=== PATIENT | male | born 1955 | race Caucasian/White ===

== ENCOUNTER 2017-06-06 07:09 | Day surgery (SDC) | payer BC ==
[2017-06-01 10:03] VITALS: BMI 23.2
[~2017-06-06 07:09] MED LIST: LACTATED RINGERS 1,000 ML IV SCH; LIDOCAINE 1% 20 ML VIAL (10MG/ML) FOR IV START INTRADERMA PRN; MOXIFLOXACIN HCL 0.5% DROPS 3 ML BTL OP ONE; TETRACAINE 0.5% OPHTH (PF) DROPS 4 ML BTL OP ONE; TIMOLOL 0.5% OPHTH SOLN (PF) 0.2 ML DROPERETTE OP ONE
[2017-06-06 07:26] VITALS: RESP 16
[2017-06-06 07:29] VITALS: TEMP 98.5
[2017-06-06] MEDS: PHENYLEPHRINE 2.5% OPHTH DRP 2ML OP NR ×3 (07:32→07:49)
[2017-06-06] MEDS: CYCLOPENTOLATE 1% OPHTH SOLN 2 ML BTL OP ONE ×3 (07:36→07:51)
[2017-06-06] MEDS ORDERED: fentaNYL (PF) 50 MCG/ML 2 ML AMP ONE (08:03)
[2017-06-06] MEDS ORDERED: MIDAZOLAM 2 MG/2 ML VIAL ONE (08:03)
[2017-06-06] MEDS ORDERED: EPINEPHrine (PF) 0.3 ML in BALANCED SALT IRRIG SOLN COMB2 500 ML IRRIGATION ONE (08:06)
[2017-06-06] MEDS ORDERED: LIDOCAINE 1% (PF) 10MG/ML VIAL MISCELLANE ONE ×2 (08:13)
[2017-06-06] MEDS ORDERED: HYALURONATE SODIUM INTRAOCULAR 1 EACH SYRINGE (12MG/ML) INTRAOCULA ONE ×2 (08:13)
[2017-06-06] MEDS ORDERED: BALANCED SALT IRRIG SOLN COMB2 15 ML IRRIG.SOLN INTRAOCULA ONE (08:13)
[2017-06-06] MEDS ORDERED: CHONDROITIN-SOD HYALURONATE 1 EACH SYRINGE (0.75 ML) INTRAOCULA ONE ×2 (08:35)
[2017-06-06] MEDS ORDERED: EPINEPHrine (PF) 1 MG/ML AMP MISCELLANE ONE (08:54)
--- NOTE | 2017-06-06 09:16 | P.OP ---
Date of Procedure: 06/06/17 Preoperative Diagnosis: NS & POAG & previous RD Postoperative Diagnosis: NS & CS & POAG & zonular dehisscence Procedure(s) Performed: ISTent imlpantation & IOL implantation & cataract removal Implants: LI61AO 17.50 & iStent [id number] Anesthesia: MAC Surgeon: Dwight Jean-Baptiste Estimated Blood Loss (ml): 0 Pathology: none sent Condition: stable Disposition: same day Indications for Procedure: blurry vision & glaucoma Operative Findings: loose lens system, leading to sulcus fixed lens implant. Description of Procedure:
[2017-06-06 09:49] VITALS: BP 126/67; PULSE 60
--- NOTE | 2017-06-07 11:38 | OP ---
DATE OF SURGERY: 06/06/17 PREOPERATIVE DIAGNOSES: 1. Nuclear sclerosis. 2. Cortical sclerosis. 3. Primary open angle glaucoma moderate stage. 4. Previous history of retinal detachment and vitrectomy with membrane peeling of the left eye. POSTOPERATIVE DIAGNOSES: 1. Nuclear sclerosis. 2. Cortical sclerosis. 3. Primary open angle glaucoma moderate stage. 4. Previous history of retinal detachment and vitrectomy with membrane peeling of the left eye. 5. Phacodonesis of the natural lens. SURGEON: DR. DEYVI HAYES. OPERATION: Clear cornea phacoemulsification of cataract and intraocular lens implant of the left eye with an eye stent implantation of the left eye. ANESTHESIA: Topical. ESTIMATED BLOOD LOSS: Zero. SPECIMEN TAKEN: None. NARRATIVE: After obtaining the appropriate consent, the patient was brought to the Operating Room where the patient was placed under cardiac monitoring and prepped and draped in the usual sterile manner. He was approached from his right temporal side and at the 5 oclock position, a 1.1 mm stab blade was used to create a paracentesis port. Through this opening, 1% Xylocaine MPF 50:50 mix with BSS was injected into the anterior chamber. This was followed by stabilization of the anterior chamber with Viscoat. A small amount of material was placed on the patients cornea as well. At the 3 oclock position , a 2.5 mm Keratome was used to create a self sealing corneal flap incision. ( ). The patients head was then turned 45 degrees away from the operative site and a ( ) prism was placed on the patients eye. Examination of the angle of the cornea and the iris was examined and the trabecular mesh work was identified. Using a ( ) eye stent model [id number], the stent was passed across the anterior chamber and into the nasal side of the trabecular meshwork. The implant was imbedded into Schlemms canal and required tapping with the viscoelastic cannula to ensure proper placement. The patient was then returned to the normal supine position. At this stage, a cystatome was introduced to begin a continuous tear capsulorrhexis which was completed with the Utrata forceps. Hydrodissection and hydrodelineation of the lens was accomplished with balanced salt solution. Phacoemulsification of the lens was performed utilizing phacochop was begun and it was identified at this point that there was moderate to severe laxity of the nasal ( ) in the patients eye. A 13 mm capsular tension ring was then placed into the capsular bag through the cortical cataract material in the patients eye. Careful continuation of phacoemulsification allowed removal of the cataract at 53.85 seconds at 15% power. During the course of the cataract removal, there was significant amount of myosis which was encountered and a 6.5 mm Malyugin ring was inserted at the beginning of phacoemulsification, however, due to significant changes in the depth of the anterior chamber, the Malyugin ring did not remain on the papillary sphincter and was removed prior to clean up of the remaining cortical material in the eye. Additional Xylocaine MPF was instilled into the anterior chamber as well as Xylocaine MPF 1:1000 50/50 mix with balance salt solution in an attempt to enhance the remaining dilation. Because of concerns with the stability of the remaining and intact capsular bag with capsular tension ring, it was decided to use the backup lens and place it within the siliary sulcus supported by the remaining capsule and intact zonules. A [employer] LI61AO 17.5 diopter posterior chamber lens was then inserted into the eye and rotated away from the area of perceived zonular dehiscence. Careful clean up of the remaining viscoelastic was accomplished with irrigation and aspiration. The eye was brought to normal intraocular pressure at the paracentesis port. For additional security, the temporal as well as paracentesis were coated with Resure to prevent early postoperative leakage from the eye and shifting of the anterior chamber contents. The patient then received two drops of Moxifloxacin as well as two drops of 0.5% Timolol. He was then lightly patched and shielded in the usual manner. The patient was returned to the recovery room in good condition. MARY
== END 2017-06-06 10:16 | disposition home or self-care (01) ==
LOC: OR 07:09
PROVIDERS: ATTEND Ophthalmology
DX: H25.12 Age-related nuclear cataract, left eye (principal); H25.012 Cortical age-related cataract, left eye; H40.1132 Primary open-angle glaucoma, bilateral, moderate stage; H27.8 Other specified disorders of lens; H47.233 Glaucomatous optic atrophy, bilateral; H35.9 Unspecified retinal disorder; H52.12 Myopia, left eye; H52.223 Regular astigmatism, bilateral; H52.4 Presbyopia; H35.719 Central serous chorioretinopathy, unspecified eye; G43.909 Migraine, unspecified, not intractable, without status migrainosus; F32.9 Major depressive disorder, single episode, unspecified; I10 Essential (primary) hypertension; F90.9 Attention-deficit hyperactivity disorder, unspecified type; F41.9 Anxiety disorder, unspecified; Z79.899 Other long term (current) drug therapy; Z88.8 Allergy status to other drugs, medicaments and biological substances; Z87.891 Personal history of nicotine dependence
CPT/HCPCS: 66183; 66982; L8610; V2632; V2788; C1783; J2250; J0171; J3010; J2001

== ENCOUNTER 2017-07-04 08:00 | Day surgery (SDC) | payer BC ==
[2017-06-27 12:00] VITALS: BMI 24.7
[~2017-07-04 08:00] MED LIST changes: +BUPIVACAINE (PF) 0.5% 4.5 ML, HYALURONIDASE, HUMAN RECOMB 150 UNIT, LIDOCAINE (PF) 90 MG IO ONE; -LIDOCAINE 1% 20 ML VIAL (10MG/ML) FOR IV START INTRADERMA PRN; -MOXIFLOXACIN HCL 0.5% DROPS 3 ML BTL OP ONE; -TETRACAINE 0.5% OPHTH (PF) DROPS 4 ML BTL OP ONE; -TIMOLOL 0.5% OPHTH SOLN (PF) 0.2 ML DROPERETTE OP ONE
[2017-07-04] MEDS: CYCLOPENTOLATE 1% OPHTH SOLN 2 ML BTL OP SCH ×3 (10:04→10:18)
[2017-07-04] MEDS: PHENYLEPHRINE 2.5% OPHTH DRP 2ML OP SCH ×3 (10:08→10:21)
[2017-07-04 10:13] VITALS: TEMP 97.9
[2017-07-04] MEDS ORDERED: LIDOCAINE 1% 20 ML VIAL (10MG/ML) FOR IV START INTRADERMA ONE (10:19)
[2017-07-04] MEDS ORDERED: fentaNYL (PF) 50 MCG/ML 2 ML AMP ONE (10:49)
[2017-07-04] MEDS ORDERED: PROPOFOL 10 MG/ML 20 ML VIAL IV ONE (10:49)
[2017-07-04] MEDS ORDERED: MIDAZOLAM 2 MG/2 ML VIAL ONE (10:49)
[2017-07-04] MEDS ORDERED: HYALURONATE SODIUM INTRAOCULAR 1 EACH SYRINGE (12MG/ML) INTRAOCULA ONE (10:51)
[2017-07-04] MEDS ORDERED: MOXIFLOXACIN HCL 0.5% DROPS 3 ML BTL LEFT EYE ONE (10:51)
[2017-07-04] MEDS ORDERED: BALANCED SALT IRRIG SOLN COMB2 15 ML IRRIG.SOLN INTRAOCULA ONE (10:51)
[2017-07-04] MEDS ORDERED: EPINEPHrine (PF) 0.5 ML in BALANCED SALT IRRIG SOLN COMB2 500 ML IRRIGATION ONE (10:54)
[2017-07-04] MEDS ORDERED: CHONDROITIN-SOD HYALURONATE 1 EACH SYRINGE (0.75 ML) INTRAOCULA ONE (10:57)
[2017-07-04] MEDS ORDERED: TIMOLOL 0.5% OPHTH SOLN (PF) 0.2 ML DROPERETTE LEFT EYE ONE (12:06)
--- NOTE | 2017-07-04 12:10 | P.OP ---
Date of Procedure: 07/04/17 Preoperative Diagnosis: aphakia OS Postoperative Diagnosis: same Procedure(s) Performed: primary implant OS sutured in place Implants: LI61AO 18.00 Anesthesia: MAC Surgeon: Dwight Jean-Baptiste Pathology: none sent Condition: stable Disposition: same day Indications for Procedure: No lens poor vision Operative Findings: No complications Description of Procedure:
[2017-07-04 12:31] VITALS: RESP 16
[2017-07-04 12:33] VITALS: BP 134/89; PULSE 54
--- NOTE | 2017-07-05 19:23 | OP ---
DATE OF SURGERY: 07/04/2017 PROCEDURE: Secondary implantation of a dislocated intraocular lens of the left eye. PREOPERATIVE DIAGNOSIS: Dislocated intraocular lens. POSTOPERATIVE DIAGNOSIS: Dislocation intraocular lens. SURGEON: Dr. Dwight Jean-Baptiste ANESTHESIA: Regional block using retrobulbar anesthesia. ESTIMATED BLOOD LOSS: Less than 5 mL SPECIMEN TAKEN: None. NARRATIVE: After obtaining the appropriate consent, the patient was brought to the operating room. There he was induced into a deep twilight with propofol. At this point, using a retrobulbar anesthetic consisting of 1% bupivacaine and 2% lidocaine without epinephrine and 100 units of hyaluronidase, this was injected into the retrobulbar space using a 25-gauge [id number] Saravia needle. A [place] balloon was placed on the patient's eye and left in place for 10 minutes. He was then prepped and draped in the usual sterile manner. He was approached from his left temporal side. In anticipation of placing an intraocular lens scleral-sutured in a Robles fashion, 2 paracenteses were performed at 10 o' clock and 4 o'clock on the eye as well as an additional paracentesis at the 5: 30 position. This was based on the appearance of the capsular bag, which appeared to be insecure in the 10 o'clock direction. Amvisc was used to stabilize the anterior chamber and at the 3 o'clock position a 2.5 mm keratome was used to create a self-sealing corneal flap incision. It was decided at this point 2 iris retractor hooks were needed to better examine the superonasal area of the eye and ciliary sulcus. Retraction of the iris out of the field allowed examination of the capsular bag that had previously been secured using a capsular tension ring. At this point it was noted at the 9 o'clock position a posterior chamber intraocular lens was trapped between the capsular bag and apparently the ciliary body which had remained well hidden by the iris itself. As the intraocular lens had been planned to be implanted originally as a sulcus- fixed lens, this lens was simply drawn back from the nasal area of the eye and brought into the anterior chamber using the retrieving forceps of the [employer] lens dissection system. Since there had been a capsular tension ring placed at the original operation into the capsular bag, it was decided to better capture the capsular tension ring with the Prolene suture. So in addition to the previously placed paracenteses at the 10 o'clock and 4 o'clock positions, a partial-thickness scleral pocket just posterior to the paracenteses was performed at those 2 places. This extended posteriorly approximately 3 to 3.5 mm. Using 9-0 Prolene, the suture was passed across the anterior chamber through the pupils and posterior to the capsule and the capsular tension ring and brought out through the sclera within the area of the scleral pocket at the 10 o'clock position. The other half of the 9-0 double-armed suture was also passed through the 4 o'clock paracentesis and in a similar manner but over the capsular tension ring of the capsular bag and again brought out through the sclera in the region of the partial-thickness scleral pocket. Definitive traction was identified on the capsular tension ring and therefore the suture was secured with multiple knots which slid very nicely into the scleral pocket. The stability of the capsular bag was confirmed by removing some remaining cortex which had been identified in the capsular bag in that same area. This seemed more than adequate confirmation to be able to move the posterior chamber intraocular lens which had previously dislocated back into the ciliary sulcus position. The lens positioned itself into the ciliary sulcus using a Sinskey hook with minimal difficulty. Confirmation was made more than once that the lens did not have a tendency to deviate from the placement within the ciliary sulcus as planned. Once this was accomplished, the remaining viscoelastic from within the anterior chamber was removed under irrigation and aspiration, and no paired 9-0 suture was used to stabilize the capsular bag in the infratemporal quadrant. It is believed on my part that the reason for the zonular breakdown in the superonasal quadrant was related to the previous retinal surgery, as during the creation of the scleral pocket there was significant scarring which was probably one of the sites for the retinal work which had been previously accomplished. At the end of the case, the patient received 2 drops of 0.5% Timolol and 2 drops of moxifloxacin and was lightly patched and shielded in the usual manner. There were no complications from the procedure, and he was returned to Recovery in good condition. MARY
== END 2017-07-04 12:52 | disposition home or self-care (01) ==
LOC: OR 08:00
PROVIDERS: ATTEND Ophthalmology
DX: T85.22XA Displacement of intraocular lens, initial encounter (principal); H40.1132 Primary open-angle glaucoma, bilateral, moderate stage; H47.233 Glaucomatous optic atrophy, bilateral; H35.413 Lattice degeneration of retina, bilateral; G45.3 Amaurosis fugax; H52.12 Myopia, left eye; H52.223 Regular astigmatism, bilateral; H52.4 Presbyopia; I10 Essential (primary) hypertension; F32.9 Major depressive disorder, single episode, unspecified; E78.5 Hyperlipidemia, unspecified; Z79.52 Long term (current) use of systemic steroids; Z79.899 Other long term (current) drug therapy